=== PATIENT | male | born 1990 | race Caucasian/White ===

== ENCOUNTER 2020-09-23 16:33 | Emergency (ER) | payer OTHER ==
[2020-09-23 17:43] LABS: BASOPHIL 0.6 % (0-2); HCT 43.9 % (42.0-52.0); HGB 15.4 g/dl (13.2-18.0); LYMPHOCYTE 19.7 % (15-48); MCH 29.7 pg (25.0-31.0); MCHC 35.1 g/dL (32.0-36.0); MCV 84.7 fL (78.0-100.0); MPV 12.3 fL (6.0-9.5); NEUTROPHIL 69.1 % (41-80); NRBC 0; PLT 152 K/uL (150-400); RBC 5.18 M/uL (4.70-6.00); RDW 13.4 % (11.5-14.0); WBC 8.9 K/uL (4.0-10.5)
[2020-09-23 18:01] LABS: ALBUMIN 3.4 g/dL (3.4-5.0); ALKALINE PHOSHATASE 80 U/L (46-116); ALT 29 U/L (16-63); AST 17 U/L (15-37); BUN 18 mg/dL (7-18); CHLORIDE 104 mmol/L (98-107); CO2 (BICARBONATE) 27 mmol/L (21-32); GLOBULIN (CALCULATION) 3.3 g/dL; GLUCOSE 113 mg/dL (74-106); POTASSIUM 3.9 mmol/L (3.5-5.1); TOTAL PROTEIN 6.7 g/dL (6.4-8.2)
[2020-09-23 18:08] LABS: BILIRUBIN NEGATIVE (NEGATIVE); BLOOD NEGATIVE Ery/uL (NEGATIVE); CLARITY CLEAR (CLEAR); COLOR YELLOW (YELLOW); GLUCOSE (U) NORMAL (NORMAL); LEUKOCYTES NEGATIVE Leu/uL (NEGATIVE); NITRITE NEGATIVE (NEGATIVE); PROTEIN NEGATIVE (NEGATIVE); SPECIFIC GRAVITY 1.025 (1.001-1.030); UROBILINOGEN 0.2 mg/dL (0.2-1.0)
[2020-09-23 18:11] LABS: AMPHETAMINES NEGATIVE (NEGATIVE); BARBITURATES NEGATIVE (NEGATIVE); ECSTASY (MDMA) NEGATIVE (NEGATIVE); MARIJUANA (THC) POSITIVE (NEGATIVE); METHADONE NEGATIVE (NEGATIVE); OPIATES NEGATIVE (NEGATIVE); OXYCODONE NEGATIVE (NEGATIVE)
[2020-09-23] MEDS ORDERED: DEPAKOTE250 MG PO (18:41)
== END 2020-09-23 20:10 | disposition home or self-care (01) ==
LOC: FER 16:33
PROVIDERS: Emergency Medicine
DX: F43.9 Reaction to severe stress, unspecified (principal); R56.9 Unspecified convulsions; Z86.59 Personal history of other mental and behavioral disorders; Z88.2 Allergy status to sulfonamides
CPT/HCPCS: 36415; 80053; 80305; 81003; 85025; G0480; J2060; J3360; J3411; J3475; J7030